=== PATIENT | female | born 1965 | race Caucasian/White ===

== ENCOUNTER → 2016-10-01 | Outpatient (CLI) | payer MEDICARE, MEDICAID ==
[~2016-10-01] MED LIST: /ESCI20TA OR; /LAMO15TA OR; /LAMO20TA PO; /QUET10TA OR; ABIL2TAB OR; ABILIFY; ALLE25CA; AMBI10TA PO; AMBI12.52 PO; AMBI5TAB; ATARAX; CELE20TA PO; CHLO200T OR; DEPA250T2 OR; EFFE75CA75 OR; EXCETAB OR; GEOD40CA OR; GEOD40CA2 PO; GEOD60CA OR; INVE234I IM; KLON0.5T; KLON1TAB OR; KLON1TAB PO; KLON2TAB OR; LAMO10TA PO; LAMO200T PO; LIPI20TA PO; LITH1TAB4 PO; MACR50CA; NICO21DI4 TD; PRIL40CA PO; PROZ10CA7 PO; QUET1TAB10 PO; QUET30XR OR; RISP1TAB OR; RISP3TAB18 PO; SAPHRIS SL; SERO1TAB2 PO; SERO400T OR; SERO400T PO; SEROQUEL; SEROQUEL OR; SYNT125T PO; TRAZ50TA OR; TRIL1TAB PO; VENL225T PO; VENL75TA3 PO; VIST50CA PO; ZIPR80CAP; cymbalta PO; lamictal PO
[2016-10-01 13:19] LABS: ALBUMIN 3.7 GM/DL (3.2-5.2); ALBUMIN/GLOBULIN RATIO 1.16 (1.00-1.93); ALKALINE PHOSPHATASE 146 U/L (45-117); ALT/SGPT 19 U/L (12-78); ANION GAP 9 MEQ/L (8-16); AST/SGOT 12 U/L (15-37); BILIRUBIN,TOTAL 0.2 MG/DL (0.2-1.0); BLOOD UREA NITROGEN 10 MG/DL (7-18); CALCIUM LEVEL 8.5 MG/DL (8.5-10.1); CARBON DIOXIDE LEVEL 26 MEQ/L (21-32); CHLORIDE LEVEL 105 MEQ/L (98-107); CHOLESTEROL LEVEL 322 MG/DL (<200); CREATININE FOR GFR 0.88 MG/DL (0.55-1.02); FREE T4 1.14 NG/DL (0.76-1.46); GLOMERULAR FILTRATION RATE > 60.0 (>51); GLUCOSE, FASTING 94 MG/DL (70-105); POTASSIUM SERUM 4.5 MEQ/L (3.5-5.1); SODIUM LEVEL 140 MEQ/L (136-145); TOTAL PROTEIN 6.9 GM/DL (6.4-8.2); TRIGLYCERIDES LEVEL 155 MG/DL (<150)
== END ==
LOC: M LAB 10:57
PROVIDERS: ATTEND Student in an Organized Health Care Education/Training Program
DX: E78.5 Hyperlipidemia, unspecified (principal); E03.9 Hypothyroidism, unspecified; F32.9 Major depressive disorder, single episode, unspecified

== ENCOUNTER → 2017-01-02 | Outpatient (REF) | payer MEDICARE, MEDICAID ==
[~2017-01-02] MED LIST changes: -RISP3TAB18 PO; +RISP3TAB20 PO
== END ==
LOC: M LAB REF 16:44
PROVIDERS: ATTEND Student in an Organized Health Care Education/Training Program
DX: Z12.4 Encounter for screening for malignant neoplasm of cervix (principal); N88.0 Leukoplakia of cervix uteri
CPT/HCPCS: G0123; G0463

== ENCOUNTER → 2018-12-14 | Outpatient (REF) | payer MEDICARE, MEDICAID ==
[~2018-12-14] MED LIST changes: -/ESCI20TA OR; -/LAMO15TA OR; -/LAMO20TA PO; -/QUET10TA OR; +GEOD40CA13 PO; -GEOD40CA2 PO; +LAMI1TAB8 OR; +LAMI1TAB9 PO; +LAMO100T80 PO; -LAMO10TA PO; -LAMO200T PO; +LAMO200T2 PO; +LEXA1TAB2 OR; -QUET30XR OR; +SERO1TAB OR; +SERO300T20 OR; +VENL-65 PO; -VENL225T PO; +VENL225T5 PO; -VENL75TA3 PO
[2018-12-14 13:34] LABS: BASO # 0.1 10^3/uL (0.0-0.2); BASO % 0.9 % (0.0-1.0); EOS # 0.4 10^3/uL (0.0-0.50); EOS % 5.5 % (0.0-3.0); HEMATOCRIT 44.3 % (36.0-47.0); HEMOGLOBIN 14.8 g/dl (12.0-15.5); LYMPH # 2.1 10^3/uL (1.5-4.5); LYMPH % 30.6 % (24.0-44.0); MEAN CORPUSCULAR HEMOGLOBIN 29.4 pg (27.0-33.0); MEAN CORPUSCULAR HGB CONC 33.4 g/dl (32.0-36.5); MEAN CORPUSCULAR VOLUME 87.9 fl (80.0-96.0); MONO # 0.7 10^3/uL (0.0-0.8); MONO % 10.3 % (0.0-5.0); NEUTROPHILS # 3.5 10^3/uL (1.8-7.7); NEUTROPHILS % 52.3 % (36.0-66.0); PLATELET COUNT, AUTOMATED 290 10^3/uL (150-450); RED BLOOD COUNT 5.04 10^6/uL (4.00-5.40); WHITE BLOOD COUNT 6.7 10^3/uL (4.0-10.0)
[2018-12-14 13:53] LABS: ALBUMIN 3.9 GM/DL (3.2-5.2); ALT/SGPT 23 U/L (12-78); BILIRUBIN,TOTAL 0.3 MG/DL (0.2-1.0); BLOOD UREA NITROGEN 8 MG/DL (7-18); CALCIUM LEVEL 8.6 MG/DL (8.5-10.1); CARBON DIOXIDE LEVEL 26 MEQ/L (21-32); CHLORIDE LEVEL 106 MEQ/L (98-107); CHOLESTEROL LEVEL 151 MG/DL (<200); CHOLESTEROL RISK RATIO 3.355 (<5); CREATININE FOR GFR 0.74 MG/DL (0.55-1.30); FREE T4 1.02 NG/DL (0.76-1.46); GLOMERULAR FILTRATION RATE > 60.0 (>51); GLUCOSE, FASTING 101 MG/DL (70-100); HDL CHOLESTEROL 45 MG/DL (>40); LDL CHOLESTEROL 88 MG/DL (<100); NON-HDL-C 106 MG/DL; POTASSIUM SERUM 4.5 MEQ/L (3.5-5.1); SODIUM LEVEL 139 MEQ/L (136-145); THYROID STIMULATING HORMONE 0.872 uIU/ML (0.358-3.740); TOTAL 25(OH) VITAMIN D 18.9 NG/ML (30.0-100.0); TOTAL PROTEIN 7.2 GM/DL (6.4-8.2); TRIGLYCERIDES LEVEL 88 MG/DL (<150)
[2018-12-14 13:55] LABS: HEMOGLOBIN A1c 5.8 %
[2018-12-14 14:08] LABS: APPEARANCE, URINE CLOUDY (CLEAR); BACTERIA, URINE AUTO NEGATIVE (NEGATIVE); BILIRUBIN, URINE AUTO NEGATIVE (NEGATIVE); BLOOD, URINE BLOOD 2+ (NEGATIVE); COLOR, URINE YELLOW (YELLOW); GLUCOSE, URINE (UA) AUTO NEGATIVE (NEGATIVE); KETONE, URINE AUTO NEGATIVE (NEGATIVE); LEUKOCYTE ESTERASE, URINE AUTO TRACE (NEGATIVE); NITRITE, URINE AUTO NEGATIVE (NEGATIVE); PROTEIN, URINE AUTO NEGATIVE (NEGATIVE); RBC, URINE AUTO 3 /HPF (0-3); SPECIFIC GRAVITY URINE AUTO 1.013 (1.002-1.035); SQUAMOUS EPITHELIAL CELL UR AU 8 /HPF (0-6); UROBILINOGEN, URINE AUTO 0.2 mg/dL (0.0-2.0); WBC, URINE AUTO 0 /HPF (0-3)
[2018-12-16 00:06] LABS: Lyme Disease IgG/IgM Antibodie <0.91 ISR (0.00-0.90); Lyme Disease IgM Ab Quantitati <0.80 index (0.00-0.79)
== END ==
LOC: M LAB REF 12:52
PROVIDERS: ATTEND Family Medicine
DX: Z13.228 Encounter for screening for other metabolic disorders (principal); Z79.899 Other long term (current) drug therapy

== ENCOUNTER → 2019-03-17 | Outpatient (REF) | payer MEDICARE, MEDICAID ==
[2019-03-17 17:10] LABS: ALT/SGPT 23 U/L (12-78); BILIRUBIN,TOTAL 0.3 MG/DL (0.2-1.0); BLOOD UREA NITROGEN 8 MG/DL (7-18); CALCIUM LEVEL 9.1 MG/DL (8.5-10.1); CARBON DIOXIDE LEVEL 28 MEQ/L (21-32); CHLORIDE LEVEL 101 MEQ/L (98-107); CHOLESTEROL LEVEL 134 MG/DL (<200); CREATININE FOR GFR 0.88 MG/DL (0.55-1.30); FREE T4 1.05 NG/DL (0.76-1.46); GLOMERULAR FILTRATION RATE > 60.0 (>51); GLUCOSE, FASTING 101 MG/DL (70-100); HDL CHOLESTEROL 42 MG/DL (>40); LDL CHOLESTEROL 60 MG/DL (<100); NON-HDL-C 92 MG/DL; POTASSIUM SERUM 4.4 MEQ/L (3.5-5.1); SODIUM LEVEL 136 MEQ/L (136-145); TOTAL PROTEIN 7.2 GM/DL (6.4-8.2); TRIGLYCERIDES LEVEL 158 MG/DL (<150)
[2019-03-17 17:43] LABS: HEMOGLOBIN A1c 5.8 %
== END ==
LOC: M LAB REF 16:28
PROVIDERS: ATTEND Family Medicine
DX: R73.03 Prediabetes (principal); E03.1 Congenital hypothyroidism without goiter; E78.5 Hyperlipidemia, unspecified

== ENCOUNTER → 2019-07-27 | Outpatient (REF) | payer MEDICARE, MEDICAID ==
[~2019-07-27] MED LIST changes: -LAMO200T2 PO; +LAMO200T3 PO
[2019-07-27 18:19] LABS: HEMOGLOBIN A1c 5.9 %
[2019-07-27 18:20] LABS: ALBUMIN 3.9 GM/DL (3.2-5.2); ALT/SGPT 24 U/L (12-78); BILIRUBIN,TOTAL 0.3 MG/DL (0.2-1.0); BLOOD UREA NITROGEN 8 MG/DL (7-18); CALCIUM LEVEL 8.8 MG/DL (8.5-10.1); CARBON DIOXIDE LEVEL 29 MEQ/L (21-32); CHLORIDE LEVEL 99 MEQ/L (98-107); CHOLESTEROL LEVEL 142 MG/DL (<200); CREATININE FOR GFR 0.85 MG/DL (0.55-1.30); FREE T4 1.23 NG/DL (0.76-1.46); GLOMERULAR FILTRATION RATE > 60.0 (>51); GLUCOSE, FASTING 90 MG/DL (70-100); HDL CHOLESTEROL 40 MG/DL (>40); LDL CHOLESTEROL 73 MG/DL (<100); NON-HDL-C 102 MG/DL; POTASSIUM SERUM 5.2 MEQ/L (3.5-5.1); SODIUM LEVEL 134 MEQ/L (136-145); TOTAL PROTEIN 7.1 GM/DL (6.4-8.2); TRIGLYCERIDES LEVEL 147 MG/DL (<150)
== END ==
LOC: M LAB REF 16:59
PROVIDERS: ATTEND Family Medicine
DX: E55.9 Vitamin D deficiency, unspecified (principal); R73.03 Prediabetes; E03.1 Congenital hypothyroidism without goiter; E78.5 Hyperlipidemia, unspecified; K21.9 Gastro-esophageal reflux disease without esophagitis

== ENCOUNTER → 2020-07-11 | Outpatient (REF) | payer MEDICARE, MEDICAID ==
[~2020-07-11] MED LIST changes: -QUET1TAB10 PO; +QUET300T2 PO
[2020-07-11 17:57] LABS: ALBUMIN 3.7 GM/DL (3.2-5.2); ALT/SGPT 22 U/L (12-78); BILIRUBIN,TOTAL 0.2 MG/DL (0.2-1.0); BLOOD UREA NITROGEN 5 MG/DL (7-18); CALCIUM LEVEL 9.3 MG/DL (8.5-10.1); CARBON DIOXIDE LEVEL 29 MEQ/L (21-32); CHLORIDE LEVEL 95 MEQ/L (98-107); CHOLESTEROL LEVEL 121 MG/DL (<200); CHOLESTEROL RISK RATIO 3.457 (<5); CREATININE FOR GFR 0.78 MG/DL (0.55-1.30); GLOMERULAR FILTRATION RATE > 60.0 (>51); GLUCOSE, FASTING 95 MG/DL (70-100); HDL CHOLESTEROL 35 MG/DL (>40); LDL CHOLESTEROL 58 MG/DL (<100); NON-HDL-C 86 MG/DL; POTASSIUM SERUM 4.1 MEQ/L (3.5-5.1); SODIUM LEVEL 132 MEQ/L (136-145); TOTAL PROTEIN 6.8 GM/DL (6.4-8.2); TRIGLYCERIDES LEVEL 142 MG/DL (<150)
== END ==
LOC: M LAB REF 16:42
PROVIDERS: ATTEND Family Medicine Addiction Medicine
DX: R73.03 Prediabetes (principal); E78.5 Hyperlipidemia, unspecified; E03.1 Congenital hypothyroidism without goiter

== ENCOUNTER → 2020-11-02 | Outpatient (CLI) | payer MEDICARE, MEDICAID ==
--- NOTE | 2020-11-02 16:27 | REPMRS ---
Patient History The patient states she has not had a clinical breast exam in over a year. Family history of endometrial cancer in paternal grandmother. Tomosynthesis is performed. Volpara breast density is b. Tyrer-Cuzick lifetime risk of breast cancer 7.0%. No breast complaints today Patient signed the MRS sheet No covid vaccine Priors on PACS Patient Identification Verified Patient's left nipple is inverted and has been for years Digital Woman Screen Mammo: November 02, 2020 - Exam #: [id number] Bilateral CC and MLO view(s) were taken. Technologist: Sharon Aranda, Technologist Prior study comparison: April 13, 2017, digital woman screen mammo performed at [facility]. August 22, 2014, bilateral digital mammo screening bilat, performed at [facility]. FINDINGS: There are scattered fibroglandular densities. There has been no change in the appearance of the mammogram from the prior studies. There is a mild amount of residual fibroglandular tissue which is fairly symmetric. There is no interval development of dominant mass, architectural distortion, or clustered microcalcification suggestive of malignancy. Assessment: BI-RADS/ACR category 1 mammogram. Negative Mammogram. Recommendation Routine screening mammogram in 1 year (for women over age 40). This mammogram was interpreted with the aid of an FDA-approved computer-aided dectection system. Electronically Signed By: Anil Peñaloza MD 11/02/20 2408
== END ==
LOC: M WHC 14:19
PROVIDERS: ATTEND Family Medicine Addiction Medicine
DX: Z12.31 Encounter for screening mammogram for malignant neoplasm of breast (principal)

== ENCOUNTER → 2022-05-14 | Outpatient (REF) | payer OTHER, MEDICARE, MEDICAID ==
[2022-05-14 18:31] LABS: ALBUMIN 3.7 G/DL (3.2-5.2); ALKALINE PHOSPHATASE 118 U/L (46-116); ALT/SGPT 25 U/L (7.0-40); AST/SGOT 21 U/L (<34); BILIRUBIN,TOTAL 0.3 MG/DL (0.3-1.2); BLOOD UREA NITROGEN < 5 MG/DL (9-23); CALCIUM LEVEL 9.3 MG/DL (8.5-10.1); CARBON DIOXIDE LEVEL 30 MMOL/L (20-31); CHLORIDE LEVEL 98 MMOL/L (98-107); CHOLESTEROL LEVEL 111 MG/DL (<200); CHOLESTEROL RISK RATIO 3.45 (<5); CREATININE FOR GFR 0.59 MG/DL (0.55-1.30); GLOMERULAR FILTRATION RATE > 60.0 (>51); GLUCOSE, FASTING 111 MG/DL (60-100); HDL CHOLESTEROL 32.1 MG/DL (>40); LDL CHOLESTEROL 62.3 MG/DL (<100); NON-HDL-C 79 MG/DL; POTASSIUM SERUM 3.7 MMOL/L (3.5-5.1); SODIUM LEVEL 136 MMOL/L (136-145); THYROID STIMULATING HORMONE 1.846 uIU/ML (0.55-4.78); TRIGLYCERIDES LEVEL 83 MG/DL (<150)
== END ==
LOC: M LAB REF 16:26
PROVIDERS: ATTEND Family Medicine Addiction Medicine
DX: E78.5 Hyperlipidemia, unspecified (principal)

== ENCOUNTER → 2022-11-14 | Outpatient (REF) | payer MEDICARE, MEDICAID ==
[2022-11-14 13:22] LABS: ALBUMIN 4.2 G/DL (3.2-5.2); ALKALINE PHOSPHATASE 109 U/L (46-116); ALT/SGPT 21 U/L (7.0-40); AST/SGOT 14 U/L (<34); BILIRUBIN,TOTAL 0.5 MG/DL (0.3-1.2); BLOOD UREA NITROGEN 6 MG/DL (9-23); CALCIUM LEVEL 8.9 MG/DL (8.5-10.1); CARBON DIOXIDE LEVEL 27 MMOL/L (20-31); CHLORIDE LEVEL 95 MMOL/L (98-107); CHOLESTEROL LEVEL 108 MG/DL (<200); CHOLESTEROL RISK RATIO 2.63 (<5); CREATININE FOR GFR 0.65 MG/DL (0.55-1.30); GLOMERULAR FILTRATION RATE > 60.0 (>51); GLUCOSE, FASTING 109 MG/DL (60-100); LDL CHOLESTEROL 48.8 MG/DL (<100); POTASSIUM SERUM 4.1 MMOL/L (3.5-5.1); SODIUM LEVEL 131 MMOL/L (136-145); TOTAL PROTEIN 6.8 G/DL (5.7-8.2); TRIGLYCERIDES LEVEL 91 MG/DL (<150)
== END ==
LOC: M LAB REF 12:20
PROVIDERS: ATTEND Family Medicine Addiction Medicine
DX: E78.5 Hyperlipidemia, unspecified (principal)

== ENCOUNTER 2023-04-29 07:58 | Day surgery (SDC) | payer MEDICARE, MEDICAID ==
[~2023-04-29] VITALS: Ht 157.5 cm; Wt 88.5 kg
[~2023-04-29 07:58] MED LIST changes: +ATOR80TA59 PO; +BUSP30TA PO; +NS 1,000 ML IV ONE; +OMEP40CA4 PO; +PROZ20CA11 PO; +TRAZ-252 PO; +VITA100093 PO
[2023-04-29] MEDS ORDERED: propofoL 200 MG/20 ML VIAL As Ordered ONE ×2 (09:53→10:00)
[2023-04-29] MEDS ORDERED: LIDOCAINE 2% 100MG/5ML SDV (FOR ANES.) As Ordered ONE (10:00)
[2023-04-29] MEDS ORDERED: GLYCOPYRROLATE INJ 0.2 MG/ML 2 ML VIAL As Ordered ONE (10:00)
[2023-04-29 10:28] VITALS: TEMP 97.7
[2023-04-29 10:45] VITALS: BP 160/80; O2SAT 98
== END 2023-04-29 11:08 | disposition home or self-care (01) ==
LOC: M OPP 07:58
PROVIDERS: ATTEND Surgery
DX: K63.5 Polyp of colon (principal); E78.5 Hyperlipidemia, unspecified; E03.9 Hypothyroidism, unspecified; M19.90 Unspecified osteoarthritis, unspecified site; F41.9 Anxiety disorder, unspecified; F32.A Depression, unspecified; F20.9 Schizophrenia, unspecified; J44.9 Chronic obstructive pulmonary disease, unspecified; F17.210 Nicotine dependence, cigarettes, uncomplicated; Z88.0 Allergy status to penicillin; Z91.030 Bee allergy status; Z79.890 Hormone replacement therapy; Z79.899 Other long term (current) drug therapy

== ENCOUNTER → 2023-07-22 | Outpatient (REF) | payer MEDICARE, MEDICAID ==
[~2023-07-22] MED LIST changes: -NS 1,000 ML IV ONE
[2023-07-22 11:58] LABS: HEMOGLOBIN A1c 5.2 % (4.0-6.0)
[2023-07-22 12:09] LABS: THYROID STIMULATING HORMONE 2.001 uIU/ML (0.55-4.78)
[2023-07-22 12:13] LABS: ALBUMIN 3.8 G/DL (3.2-5.2); ALKALINE PHOSPHATASE 80 U/L (46-116); ALT/SGPT 19 U/L (7.0-40); AST/SGOT 19 U/L (<34); BILIRUBIN,TOTAL 0.3 MG/DL (0.3-1.2); BLOOD UREA NITROGEN < 5 MG/DL (9-23); CALCIUM LEVEL 8.8 MG/DL (8.5-10.1); CARBON DIOXIDE LEVEL 28 MMOL/L (20-31); CHLORIDE LEVEL 92 MMOL/L (98-107); CHOLESTEROL LEVEL 100 MG/DL (<200); CHOLESTEROL RISK RATIO 2.01 (<5); GLOMERULAR FILTRATION RATE > 60.0 (>51); GLUCOSE, FASTING 110 MG/DL (60-100); HDL CHOLESTEROL 49.6 MG/DL (>40); LDL CHOLESTEROL 38.6 MG/DL (<100); NON-HDL-C 50.4 MG/DL; POTASSIUM SERUM 4.1 MMOL/L (3.5-5.1); SODIUM LEVEL 125 MMOL/L (136-145); TOTAL PROTEIN 6.4 G/DL (5.7-8.2); TRIGLYCERIDES LEVEL 59 MG/DL (<150)
== END ==
LOC: M LAB REF 11:09
PROVIDERS: ATTEND Family Medicine Addiction Medicine
DX: R73.9 Hyperglycemia, unspecified (principal); E78.5 Hyperlipidemia, unspecified

== ENCOUNTER → 2023-08-17 | Outpatient (REF) | payer MEDICARE, MEDICAID ==
[2023-08-17 13:45] LABS: BLOOD UREA NITROGEN < 5 MG/DL (9-23); CALCIUM LEVEL 8.5 MG/DL (8.5-10.1); CARBON DIOXIDE LEVEL 28 MMOL/L (20-31); CHLORIDE LEVEL 98 MMOL/L (98-107); CREATININE FOR GFR 0.54 MG/DL (0.55-1.30); GLOMERULAR FILTRATION RATE > 60.0 (>51); GLUCOSE, FASTING 97 MG/DL (60-100); POTASSIUM SERUM 4.4 MMOL/L (3.5-5.1); SODIUM LEVEL 130 MMOL/L (136-145)
== END ==
LOC: M LAB REF 12:34
PROVIDERS: ATTEND Family Medicine Addiction Medicine
DX: E87.1 Hypo-osmolality and hyponatremia (principal)

== ENCOUNTER → 2024-04-18 | Outpatient (REF) | payer MEDICARE, MEDICAID ==
[~2024-04-18] MED LIST changes: -KLON1TAB PO; +KLON1TAB13 PO
[2024-04-18 14:19] LABS: ALKALINE PHOSPHATASE 140 U/L (35-104); ALT/SGPT 15 U/L (7.0-40); AST/SGOT 15 U/L (<34); BILIRUBIN,TOTAL 0.3 MG/DL (0.3-1.2); BLOOD UREA NITROGEN < 5 MG/DL (9-23); CALCIUM LEVEL 9.3 MG/DL (8.5-10.1); CARBON DIOXIDE LEVEL 31 MMOL/L (20-31); CHLORIDE LEVEL 94 MMOL/L (98-107); CHOLESTEROL LEVEL 111 MG/DL (<200); CHOLESTEROL RISK RATIO 3.62 (<5); CREATININE FOR GFR 0.51 MG/DL (0.55-1.30); GLOMERULAR FILTRATION RATE > 60.0 (>51); GLUCOSE, FASTING 102 MG/DL (60-100); HDL CHOLESTEROL 30.6 MG/DL (>40); LDL CHOLESTEROL 59.6 MG/DL (<100); NON-HDL-C 80.4 MG/DL; POTASSIUM SERUM 3.2 MMOL/L (3.5-5.1); SODIUM LEVEL 132 MMOL/L (136-145); THYROID STIMULATING HORMONE 0.727 uIU/ML (0.55-4.78); TOTAL PROTEIN 6.6 G/DL (5.7-8.2); TRIGLYCERIDES LEVEL 104 MG/DL (<150)
== END ==
LOC: M LAB REF 13:02
PROVIDERS: ATTEND Family Medicine Addiction Medicine
DX: E78.5 Hyperlipidemia, unspecified (principal)

== ENCOUNTER → 2024-04-25 | Outpatient (REF) | payer MEDICARE, MEDICAID ==
[~2024-04-25] MED LIST changes: -GEOD40CA13 PO; +ZIPR40CA27 PO
[2024-04-25 14:12] LABS: BLOOD UREA NITROGEN < 5 MG/DL (9-23); CALCIUM LEVEL 8.8 MG/DL (8.5-10.1); CARBON DIOXIDE LEVEL 35 MMOL/L (20-31); CHLORIDE LEVEL 98 MMOL/L (98-107); CREATININE FOR GFR 0.52 MG/DL (0.55-1.30); GLOMERULAR FILTRATION RATE > 60.0 (>51); GLUCOSE, FASTING 104 MG/DL (60-100); POTASSIUM SERUM 3.6 MMOL/L (3.5-5.1); SODIUM LEVEL 135 MMOL/L (136-145)
== END ==
LOC: M LAB REF 13:34
PROVIDERS: ATTEND Family Medicine Addiction Medicine
DX: E87.6 Hypokalemia (principal)

== ENCOUNTER → 2024-10-13 | Outpatient (REF) | payer MEDICARE, MEDICAID ==
[~2024-10-13] MED LIST changes: -AMBI10TA PO; -AMBI12.52 PO; +ZOLP-533 PO; +ZOLP12.561 PO
[2024-10-13 19:45] LABS: ALKALINE PHOSPHATASE 134 U/L (35-104); ALT/SGPT 16 U/L (7.0-40); AST/SGOT 26 U/L (<34); BILIRUBIN,TOTAL 0.3 MG/DL (0.3-1.2); BLOOD UREA NITROGEN < 5 MG/DL (9-23); CALCIUM LEVEL 8.8 MG/DL (8.3-10.6); CARBON DIOXIDE LEVEL 32 MMOL/L (20-31); CHLORIDE LEVEL 95 MMOL/L (98-107); CHOLESTEROL LEVEL 110 MG/DL (<200); CHOLESTEROL RISK RATIO 3.23 (<5); GLOMERULAR FILTRATION RATE > 90.0 (>45); GLUCOSE, FASTING 96 MG/DL (74-106); LDL CHOLESTEROL 56.4 MG/DL (<100); POTASSIUM SERUM 3.1 MMOL/L (3.5-5.1); SODIUM LEVEL 133 MMOL/L (136-145); THYROID STIMULATING HORMONE 0.162 uIU/ML (0.55-4.78); TOTAL PROTEIN 6.3 G/DL (5.7-8.2); TRIGLYCERIDES LEVEL 98 MG/DL (<150)
== END ==
LOC: M LAB REF 17:46
PROVIDERS: ATTEND Family Medicine Addiction Medicine
DX: E78.5 Hyperlipidemia, unspecified (principal)

== ENCOUNTER → 2024-11-02 | Outpatient (REF) | payer MEDICARE, MEDICAID ==
[2024-11-02 18:42] LABS: THYROID STIMULATING HORMONE 0.224 uIU/ML (0.55-4.78)
[2024-11-02 18:55] LABS: BLOOD UREA NITROGEN < 5 MG/DL (9-23); CALCIUM LEVEL 8.7 MG/DL (8.3-10.6); CARBON DIOXIDE LEVEL 28 MMOL/L (20-31); CHLORIDE LEVEL 99 MMOL/L (98-107); CREATININE FOR GFR 0.49 MG/DL (0.55-1.30); GLOMERULAR FILTRATION RATE > 90.0 (>45); GLUCOSE, FASTING 83 MG/DL (74-106); POTASSIUM SERUM 3.9 MMOL/L (3.5-5.1); SODIUM LEVEL 132 MMOL/L (136-145)
== END ==
LOC: M LAB REF 17:18
PROVIDERS: ATTEND Family Medicine Addiction Medicine
DX: E87.6 Hypokalemia (principal); E03.1 Congenital hypothyroidism without goiter

== ENCOUNTER 2024-12-20 08:23 | Inpatient (IN) | payer MEDICARE, MEDICAID ==
[~2024-12-20] VITALS: Ht 157.5 cm; Wt 67.1 kg
[2024-12-20] VITALS (11 sets, daily range): BP systolic 87–124; BP diastolic 57–85; TEMP 98.9; O2SAT 98–100
[2024-12-20] MEDS ORDERED: HALO0.5H PO (08:41)
[2024-12-20] MEDS ORDERED: CLON0.5T2 PO (08:41)
[2024-12-20 09:14] LABS: BASO # 0.1 10^3/uL (0.0-0.2); BASO % 0.4 % (0.0-1.0); EOS # 0.3 10^3/uL (0.0-0.5); EOS % 1.9 % (0.0-3.0); LYMPH # 2.4 10^3/uL (1.5-5.0); LYMPH % 17.4 % (24.0-44.0); MONO # 1.4 10^3/uL (0.0-0.8); MONO % 9.9 % (2.0-8.0); NEUTROPHILS # 9.8 10^3/uL (1.5-8.5); NEUTROPHILS % 69.8 % (36.0-66.0); PLATELET COUNT, AUTOMATED 344 10^3/uL (150-450)
[2024-12-20] MEDS: KETOROLAC 30 MG/ML 1 ML VIAL IV ONE (09:29)
[2024-12-20] MEDS: IPRATROPIUM 0.5 MG/ALBUTEROL 2.5 MG INH SOL UD 3 ML NEB SCH ×2 (09:51→21:28)
[2024-12-20] MEDS: LevoFLOXacin IV 750 MG in IV 1 EA IV ONE (09:54)
[2024-12-20] MEDS ORDERED: TRAZ-189 PO (09:59)
[2024-12-20] MEDS ORDERED: INVE1.75 IM (09:59)
[2024-12-20] MEDS ORDERED: HOME MED LIST COMPLETE! XX SCH (10:00)
[2024-12-20 10:11] LABS: ALT/SGPT 9 U/L (7.0-40); AST/SGOT 19 U/L (<34); CALCIUM LEVEL 8.8 MG/DL (8.3-10.6); CARBON DIOXIDE LEVEL 35 MMOL/L (20-31); CHLORIDE LEVEL 93 MMOL/L (98-107); CREATININE FOR GFR 0.48 MG/DL (0.55-1.30); GLOMERULAR FILTRATION RATE > 90.0 (>45); POTASSIUM SERUM 2.5 MMOL/L (3.5-5.1); SODIUM LEVEL 136 MMOL/L (136-145); THYROXINE (T4) 12.6 UG/DL (4.5-10.9)
[2024-12-20 11:00] LABS: CPK CREATINE PHOSPHOKINASE 23 U/L (34-145)
[2024-12-20 11:04] LABS: CK-MB VALUE MASS < 1.0 NG/ML (<3.6)
[2024-12-20 11:12] LABS: CPK CREATINE PHOSPHOKINASE 23 U/L (34-145)
[2024-12-20 11:13] LABS: CK-MB VALUE MASS < 1.0 NG/ML (<3.6)
[2024-12-20] MEDS: POTASSIUM CHLORIDE 10MEQ SR TABLET PO ONE ×3 (11:24→18:46)
[2024-12-20] MEDS: NS (Normal Saline) 0.9% 1,990 ML in IV 1 EA IV ONE (11:26)
[2024-12-20] MEDS: KCL 10MEQ/100ML SWI (KRUN) 10 MEQ in IV 1 EA IV ONE (11:27)
[2024-12-20 13:51] LABS: MAGNESIUM LEVEL 1.8 MG/DL (1.8-2.4)
[2024-12-20 15:07] LABS: CALCIUM LEVEL 8.1 MG/DL (8.3-10.6); CARBON DIOXIDE LEVEL 28 MMOL/L (20-31); CHLORIDE LEVEL 99 MMOL/L (98-107); CREATININE FOR GFR 0.49 MG/DL (0.55-1.30); GLOMERULAR FILTRATION RATE > 90.0 (>45); POTASSIUM SERUM 2.7 MMOL/L (3.5-5.1); SODIUM LEVEL 139 MMOL/L (136-145)
[2024-12-20] MEDS: MAG SULF 1GM/100ML (MAG RUN) 1 GM in IV 1 EA IV ONE ×2 (16:31→22:13)
[2024-12-20] MEDS ORDERED: ISOVUE-370 76% 100 ML VIAL As Ordered ONE (17:01)
[2024-12-20] MEDS ORDERED: guaiFENesin SYRUP 200 MG/10 ML UDC PO PRN (17:10)
[2024-12-20] MEDS: EPINEPHrine 1 MG/10 ML SYRINGE 1.5IN IV STA (17:15)
[2024-12-20] MEDS ORDERED: HALOPERIDOL 0.5 MG TAB PO PRN (17:15)
[2024-12-20] MEDS ORDERED: clonazePAM 0.5 MG TAB PO PRN (17:15)
[2024-12-20] MEDS: AMIODARONE 150 MG/3 ML VIAL IVP STA (17:19)
[2024-12-20] MEDS ORDERED: PROPOFOL 1,000 MG/100 ML VIAL As Ordered ONE (17:30)
[2024-12-20] MEDS ORDERED: MIDAZOLAM 5 MG/ML 1 ML VIAL As Ordered ONE (17:32)
[2024-12-20] MEDS: MIDAZOLAM INJ 2 MG/2 ML VIAL IV ONE (17:35)
[2024-12-20] MEDS: MIDAZOLAM INJ 2 MG/2 ML VIAL IV STA (17:35)
[2024-12-20] MEDS ORDERED: FENTANYL DRIP LOCK BOX KEY 1 EACH XX PRN (17:35)
[2024-12-20] MEDS ORDERED: MIDAZOLAM 100MG/100ML-0.9%NACL 100 MG in IV 1 EA IV SCH ×2 (17:35→18:45)
[2024-12-20] MEDS: KCL 10MEQ/100ML SWI (KRUN) 10 MEQ in IV 1 EA IV SCH (17:51)
[2024-12-20] MEDS: MIDAZOLAM 100MG/100ML-0.9%NACL 100 MG in IV 1 EA IV SCH (17:58)
[2024-12-20] MEDS: NS (Normal Saline) 0.9% 1,000 ML IV SCH (17:59)
[2024-12-20 18:19] LABS: ABG BASE EXCESS -2.0 (-2.0-2.0); ABG HCO3 22.5 MMOL/L (22.0-26.0); ABG O2 SATURATION 99.0 % (95.0-99.0); ABG PARTIAL PRESSURE CO2 37.7 mmHg (35.0-45.0); ABG PARTIAL PRESSURE O2 229.3 mmHg (75.0-100.0); ABG STANDARD HCO3 22.9 MMOL/L. (22.0-26.0); ABG TOTAL CO2 23.6 MMOL/L (23.0-31.0); ABG pH (ARTERIAL) 7.393 UNITS (7.350-7.450)
[2024-12-20] MEDS: fentaNYL CITRATE/NaCl 1,000 MCG in IV 1 EA IV SCH (18:40)
[2024-12-20] MEDS: NS (Normal Saline) 0.9% 1,000 ML IV ONE (18:55)
[2024-12-20] MEDS ORDERED: AMIODARONE HCL 150 MG in IV 1 EA IV SCH (19:00)
[2024-12-20] MEDS: ACETAMINOPHEN *IV* 1,000 MG in IV 1 EA IV ONE (19:26)
[2024-12-20] MEDS ORDERED: KCL 40MEQ in NS 1000ML 1,000 ML IV ONE (20:00)
[2024-12-20] MEDS ORDERED: traZODone 100 MG TAB PO SCH (21:00)
[2024-12-20] MEDS: ENOXAPARIN 80 MG/0.8 ML SYRINGE (J1650 PER 10MG) SC SCH (22:12)
[2024-12-20] MEDS: ATORVASTATIN 20 MG TAB PO SCH (22:12)
[2024-12-20] MEDS: MEROPENEM IV SCH (22:30)
[2024-12-20] MEDS: NACL IV SCH (22:30)
[2024-12-20] MEDS: KCL 20MEQ in NS 1000ML 1,000 ML IV SCH (23:01)
[2024-12-20 23:48] LABS: CK-MB VALUE MASS 7.1 NG/ML (<3.6)
[2024-12-20] MEDS: VANCOMYCIN HCL 1,500 MG, VIAL MATE ADAPTER 1 EACH in NS 500 ML IV ONE (23:53)
[2024-12-21] VITALS (47 sets, daily range): BP systolic 85–153; BP diastolic 52–88; TEMP 97.1–98.6; O2SAT 93–100
[2024-12-21 00:27] LABS: BASO # 0.0 10^3/uL (0.0-0.2); BASO % 0.2 % (0.0-1.0); EOS # 0.1 10^3/uL (0.0-0.5); EOS % 0.5 % (0.0-3.0); LYMPH # 0.6 10^3/uL (1.5-5.0); LYMPH % 2.7 % (24.0-44.0); MONO # 1.1 10^3/uL (0.0-0.8); MONO % 4.5 % (2.0-8.0); NEUTROPHILS # 21.7 10^3/uL (1.5-8.5); NEUTROPHILS % 91.0 % (36.0-66.0); PLATELET COUNT, AUTOMATED 311 10^3/uL (150-450)
[2024-12-21 00:35] LABS: ALT/SGPT 22 U/L (7.0-40); AST/SGOT 56 U/L (<34); CALCIUM LEVEL 8.4 MG/DL (8.3-10.6); CARBON DIOXIDE LEVEL 26 MMOL/L (20-31); CHLORIDE LEVEL 100 MMOL/L (98-107); CPK CREATINE PHOSPHOKINASE 328 U/L (34-145); CREATININE FOR GFR 0.42 MG/DL (0.55-1.30); GLOMERULAR FILTRATION RATE > 90.0 (>45); MB/CK RELATIVE INDEX 2.16 (< OR =4); POTASSIUM SERUM 3.3 MMOL/L (3.5-5.1); SODIUM LEVEL 138 MMOL/L (136-145)
[2024-12-21] MEDS ORDERED: FENTANYL DRIP LOCK BOX KEY 1 EACH XX PRN ×2 (01:00→02:10)
[2024-12-21] MEDS ORDERED: fentaNYL CITRATE/NaCl 1,000 MCG in IV 1 EA IV SCH (02:10)
[2024-12-21 06:05] LABS: ABG BASE EXCESS 2.8 (-2.0-2.0); ABG HCO3 26.6 MMOL/L (22.0-26.0); ABG O2 SATURATION 97.9 % (95.0-99.0); ABG PARTIAL PRESSURE CO2 38.4 mmHg (35.0-45.0); ABG PARTIAL PRESSURE O2 114.1 mmHg (75.0-100.0); ABG STANDARD HCO3 27.0 MMOL/L. (22.0-26.0); ABG TOTAL CO2 27.8 MMOL/L (23.0-31.0); ABG pH (ARTERIAL) 7.459 UNITS (7.350-7.450)
[2024-12-21] MEDS: LEVOTHYROXINE 100 MCG TABLET (0.1 MG) PO SCH (06:13)
[2024-12-21 06:32] LABS: PLATELET COUNT, AUTOMATED 298 10^3/uL (150-450)
[2024-12-21 07:04] LABS: INR 1.08
[2024-12-21 07:07] LABS: ALT/SGPT 18 U/L (7.0-40); AST/SGOT 44 U/L (<34); CALCIUM LEVEL 8.1 MG/DL (8.3-10.6); CARBON DIOXIDE LEVEL 27 MMOL/L (20-31); CHLORIDE LEVEL 105 MMOL/L (98-107); CREATININE FOR GFR 0.35 MG/DL (0.55-1.30); GLOMERULAR FILTRATION RATE > 90.0 (>45); MAGNESIUM LEVEL 2.1 MG/DL (1.8-2.4); POTASSIUM SERUM 3.6 MMOL/L (3.5-5.1); SODIUM LEVEL 142 MMOL/L (136-145)
[2024-12-21] MEDS ORDERED: VANCOMYCIN HCL 1,000 MG, VIAL MATE ADAPTER 1 EACH in NS 250 ML IV SCH (08:00)
[2024-12-21] MEDS: PANTOPRAZOLE 40MG VIAL IV SCH (08:06)
[2024-12-21] MEDS: LIDOCAINE 5% PATCH TD SCH (08:06)
[2024-12-21 08:12] LABS: VANCOMYCIN RANDOM 13.3 UG/ML
[2024-12-21] MEDS: VANCOMYCIN HCL 1,000 MG, VIAL MATE ADAPTER 1 EACH in NS 250 ML IV SCH (08:47)
[2024-12-21] MEDS ORDERED: FLUoxetine 20 MG CAP PO SCH (09:00)
[2024-12-21] MEDS ORDERED: OMEPRAZOLE 20MG CAP PO SCH (09:00)
[2024-12-21] MEDS ORDERED: ENOXAPARIN 40 MG/0.4 ML SYRINGE (J1650 PER 10MG) SC SCH (09:00)
[2024-12-21] MEDS: NICOTINE 7 MG/24 HR TRANSDERMAL TD SCH (10:22)
[2024-12-21] MEDS: KCL 10MEQ/100ML SWI (KRUN) IV SCH (10:31)
[2024-12-21] MEDS: AZITHROMYCIN INJ 500 MG, VIAL MATE ADAPTER 1 EACH in NS 250 ML IV SCH (11:37)
[2024-12-21] MEDS: cefTRIAXone SOD 2 GM in DEXTROSE 5% (D5W) ADV/MINI-BAG 50 ML IV SCH (18:10)
[2024-12-22] VITALS (35 sets, daily range): BP systolic 92–144; BP diastolic 55–78; TEMP 97.1–98.3; O2SAT 91–98
[2024-12-22 05:14] LABS: BASO # 0.0 10^3/uL (0.0-0.2); BASO % 0.1 % (0.0-1.0); EOS # 0.0 10^3/uL (0.0-0.5); EOS % 0.1 % (0.0-3.0); LYMPH # 1.5 10^3/uL (1.5-5.0); LYMPH % 10.6 % (24.0-44.0); MONO # 0.7 10^3/uL (0.0-0.8); MONO % 5.1 % (2.0-8.0); NEUTROPHILS # 11.8 10^3/uL (1.5-8.5); NEUTROPHILS % 83.6 % (36.0-66.0); PLATELET COUNT, AUTOMATED 298 10^3/uL (150-450)
[2024-12-22 05:33] LABS: CPK CREATINE PHOSPHOKINASE 263 U/L (34-145)
[2024-12-22 05:38] LABS: ALT/SGPT 16 U/L (7.0-40); AST/SGOT 41 U/L (<34); CALCIUM LEVEL 7.8 MG/DL (8.3-10.6); CARBON DIOXIDE LEVEL 27 MMOL/L (20-31); CHLORIDE LEVEL 110 MMOL/L (98-107); CK-MB VALUE MASS 3.6 NG/ML (<3.6); CREATININE FOR GFR 0.37 MG/DL (0.55-1.30); GLOMERULAR FILTRATION RATE > 90.0 (>45); MB/CK RELATIVE INDEX 1.36 (< OR =4); POTASSIUM SERUM 4.1 MMOL/L (3.5-5.1); SODIUM LEVEL 144 MMOL/L (136-145)
[2024-12-22 05:57] LABS: ABG BASE EXCESS 2.9 (-2.0-2.0); ABG HCO3 26.3 MMOL/L (22.0-26.0); ABG O2 SATURATION 99.2 % (95.0-99.0); ABG PARTIAL PRESSURE CO2 36.4 mmHg (35.0-45.0); ABG PARTIAL PRESSURE O2 183.6 mmHg (75.0-100.0); ABG STANDARD HCO3 27.1 MMOL/L. (22.0-26.0); ABG TOTAL CO2 27.4 MMOL/L (23.0-31.0); ABG pH (ARTERIAL) 7.477 UNITS (7.350-7.450)
[2024-12-22] MEDS: dexmedeTOMidine 200 MCG in IV 1 EA IV SCH (09:15)
[2024-12-22 11:25] LABS: FREE T4 1.18 NG/DL (0.89-1.76)
[2024-12-22] MEDS: FLUoxetine 20 MG CAP PO SCH (12:24)
[2024-12-22] MEDS: OXcarbazepine 300MG 5ML SUSP ORAL SYRINGE *DRAW UP EXACT DOSE PO SCH (12:24)
[2024-12-22] MEDS: FUROSEMIDE 100 MG/10 ML VIAL IV ONE (15:34)
[2024-12-23] VITALS (41 sets, daily range): BP systolic 110–161; BP diastolic 57–84; TEMP 98–98.3; O2SAT 86–98
[2024-12-23 00:59] LABS: CALCIUM LEVEL 7.7 MG/DL (8.3-10.6); CARBON DIOXIDE LEVEL 31 MMOL/L (20-31); CHLORIDE LEVEL 106 MMOL/L (98-107); CREATININE FOR GFR 0.45 MG/DL (0.55-1.30); GLOMERULAR FILTRATION RATE > 90.0 (>45); POTASSIUM SERUM 4.0 MMOL/L (3.5-5.1); SODIUM LEVEL 145 MMOL/L (136-145)
[2024-12-23 04:30] LABS: BASO # 0.0 10^3/uL (0.0-0.2); BASO % 0.1 % (0.0-1.0); EOS # 0.0 10^3/uL (0.0-0.5); EOS % 0.0 % (0.0-3.0); LYMPH # 1.4 10^3/uL (1.5-5.0); LYMPH % 9.6 % (24.0-44.0); MONO # 0.6 10^3/uL (0.0-0.8); MONO % 4.2 % (2.0-8.0); NEUTROPHILS # 12.4 10^3/uL (1.5-8.5); NEUTROPHILS % 85.4 % (36.0-66.0); PLATELET COUNT, AUTOMATED 333 10^3/uL (150-450)
[2024-12-23 04:58] LABS: CALCIUM LEVEL 8.1 MG/DL (8.3-10.6); CARBON DIOXIDE LEVEL 29 MMOL/L (20-31); CHLORIDE LEVEL 105 MMOL/L (98-107); CREATININE FOR GFR 0.43 MG/DL (0.55-1.30); GLOMERULAR FILTRATION RATE > 90.0 (>45); PHOSPHORUS LEVEL 3.4 MG/DL (2.4-5.1); POTASSIUM SERUM 3.8 MMOL/L (3.5-5.1); SODIUM LEVEL 144 MMOL/L (136-145)
[2024-12-23 04:59] LABS: ALT/SGPT 26 U/L (7.0-40); AST/SGOT 56 U/L (<34); MAGNESIUM LEVEL 2.1 MG/DL (1.8-2.4)
[2024-12-23 05:55] LABS: ABG BASE EXCESS 1.7 (-2.0-2.0); ABG HCO3 25.4 MMOL/L (22.0-26.0); ABG O2 SATURATION 98.4 % (95.0-99.0); ABG PARTIAL PRESSURE CO2 36.7 mmHg (35.0-45.0); ABG PARTIAL PRESSURE O2 128.4 mmHg (75.0-100.0); ABG STANDARD HCO3 26.0 MMOL/L. (22.0-26.0); ABG TOTAL CO2 26.5 MMOL/L (23.0-31.0); ABG pH (ARTERIAL) 7.458 UNITS (7.350-7.450)
[2024-12-23] MEDS ORDERED: KCL 20MEQ IN 100ML SWI (KRUN) 20 MEQ in IV 1 EA IV ONE (09:00)
[2024-12-23] MEDS: KCL 10MEQ/100ML SWI (KRUN) 10 MEQ in IV 1 EA IV SCH (10:09)
[2024-12-24] VITALS (14 sets, daily range): BP systolic 124–151; BP diastolic 71–92; TEMP 97.2–98.7; O2SAT 88–97
[2024-12-25 03:14] VITALS: BP 142/87; TEMP 97.5; O2SAT 96
[2024-12-25 06:15] LABS: PLATELET COUNT, AUTOMATED 331 10^3/uL (150-450)
[2024-12-25 06:56] LABS: ALT/SGPT 26 U/L (7.0-40); AST/SGOT 47 U/L (<34); CALCIUM LEVEL 8.0 MG/DL (8.3-10.6); CARBON DIOXIDE LEVEL 32 MMOL/L (20-31); CHLORIDE LEVEL 100 MMOL/L (98-107); CREATININE FOR GFR 0.35 MG/DL (0.55-1.30); GLOMERULAR FILTRATION RATE > 90.0 (>45); POTASSIUM SERUM 2.8 MMOL/L (3.5-5.1); SODIUM LEVEL 142 MMOL/L (136-145)
[2024-12-25 07:24] VITALS: BP 152/93; TEMP 98.2; O2SAT 96
[2024-12-25] MEDS: POTASSIUM CHLORIDE 10% LIQ 20MEQ/15ML UDC PO ONE ×2 (08:06→11:14)
[2024-12-25] MEDS: predniSONE 20 MG TAB PO SCH (08:08)
[2024-12-25] MEDS ORDERED: POTASSIUM CHLORIDE 10MEQ SR TABLET PO ONE ×2 (09:00→11:00)
[2024-12-25 11:19] VITALS: BP 136/90; TEMP 97.6; O2SAT 93
[2024-12-25 13:04] LABS: CALCIUM LEVEL 8.2 MG/DL (8.3-10.6); CARBON DIOXIDE LEVEL 31 MMOL/L (20-31); CHLORIDE LEVEL 99 MMOL/L (98-107); CREATININE FOR GFR 0.33 MG/DL (0.55-1.30); GLOMERULAR FILTRATION RATE > 90.0 (>45); POTASSIUM SERUM 3.6 MMOL/L (3.5-5.1); SODIUM LEVEL 141 MMOL/L (136-145)
[2024-12-25 15:25] VITALS: BP 138/90; TEMP 97.8; O2SAT 93
[2024-12-25 19:24] VITALS: BP 151/92; TEMP 97.5; O2SAT 94
[2024-12-25] MEDS: LORazepam 0.5 MG TAB PO SCH (21:26)
[2024-12-25] MEDS: MAGNESIUM OXIDE 400 MG TAB PO SCH (21:26)
[2024-12-25 23:09] VITALS: BP 102/55; TEMP 97.3; O2SAT 92
[2024-12-26] VITALS (8 sets, daily range): BP systolic 138–161; BP diastolic 81–97; TEMP 97.3–98.2; O2SAT 90–100
[2024-12-26 04:40] LABS: PLATELET COUNT, AUTOMATED 345 10^3/uL (150-450)
[2024-12-26 05:05] LABS: ALT/SGPT 26 U/L (7.0-40); AST/SGOT 49 U/L (<34); CALCIUM LEVEL 8.1 MG/DL (8.3-10.6); CARBON DIOXIDE LEVEL 32 MMOL/L (20-31); CHLORIDE LEVEL 99 MMOL/L (98-107); CREATININE FOR GFR 0.40 MG/DL (0.55-1.30); GLOMERULAR FILTRATION RATE > 90.0 (>45); POTASSIUM SERUM 2.9 MMOL/L (3.5-5.1); SODIUM LEVEL 142 MMOL/L (136-145)
[2024-12-26 10:05] LABS: KETONE, URINE AUTO RFX NEGATIVE (NEGATIVE); LEUKOCYTE ESTERASE UR AUTO RFX NEGATIVE (NEGATIVE); MUCUS, URINE RFX SMALL (NEGATIVE); NITRITE, URINE AUTO RFX NEGATIVE (NEGATIVE); RBC, URINE AUTO RFX 1 /HPF (0-3); SQUAM EPITHELIAL CELL UR AURFX 1 /HPF (0-6); WBC, URINE AUTO RFX 4 /HPF (0-3)
[2024-12-26] MEDS: ALBUTEROL SULFATE 2.5 MG/0.5 ML INH CONCENTRATE NEB SOLN NEB PRN (10:22)
[2024-12-26] MEDS: POTASSIUM CHLORIDE 10% LIQ 20MEQ/15ML UDC PO SCH (11:00)
[2024-12-26] MEDS: POTASSIUM CHLORIDE 10% LIQ 20MEQ/15ML UDC PO ONE (11:00)
[2024-12-26] MEDS: POTASSIUM CHLORIDE 10MEQ SR TABLET PO ONE (11:02)
[2024-12-26] MEDS ORDERED: HALOPERIDOL 0.5 MG TAB PO PRN (16:05)
[2024-12-27] VITALS (9 sets, daily range): BP systolic 138–157; BP diastolic 77–98; TEMP 97.1–98.2; O2SAT 91–95
[2024-12-27 04:36] LABS: PLATELET COUNT, AUTOMATED 304 10^3/uL (150-450)
[2024-12-27 05:02] LABS: ALT/SGPT 22 U/L (7.0-40); AST/SGOT 36 U/L (<34); CALCIUM LEVEL 8.2 MG/DL (8.3-10.6); CARBON DIOXIDE LEVEL 34 MMOL/L (20-31); CHLORIDE LEVEL 100 MMOL/L (98-107); CREATININE FOR GFR 0.38 MG/DL (0.55-1.30); GLOMERULAR FILTRATION RATE > 90.0 (>45); MAGNESIUM LEVEL 1.6 MG/DL (1.8-2.4); POTASSIUM SERUM 3.6 MMOL/L (3.5-5.1); SODIUM LEVEL 142 MMOL/L (136-145)
[2024-12-27] MEDS ORDERED: ELIQ5TAB PO (12:00)
[2024-12-27] MEDS: MAG SULF 1GM/100ML (MAG RUN) 1 GM in IV 1 EA IV SCH (13:07)
[2024-12-27] MEDS: traZODone 100 MG TAB PO SCH (20:55)
[2024-12-27] MEDS: APIXABAN 5 MG TAB PO SCH (20:55)
[2024-12-28 03:43] VITALS: BP 164/92; TEMP 97; O2SAT 92
[2024-12-28 07:05] LABS: BASO # 0.0 10^3/uL (0.0-0.2); BASO % 0.2 % (0.0-1.0); EOS # 0.2 10^3/uL (0.0-0.5); EOS % 1.3 % (0.0-3.0); LYMPH # 2.4 10^3/uL (1.5-5.0); LYMPH % 18.9 % (24.0-44.0); MONO # 0.6 10^3/uL (0.0-0.8); MONO % 4.8 % (2.0-8.0); NEUTROPHILS # 9.4 10^3/uL (1.5-8.5); NEUTROPHILS % 73.2 % (36.0-66.0); PLATELET COUNT, AUTOMATED 328 10^3/uL (150-450)
[2024-12-28 07:25] LABS: CALCIUM LEVEL 8.1 MG/DL (8.3-10.6); CARBON DIOXIDE LEVEL 30 MMOL/L (20-31); CHLORIDE LEVEL 97 MMOL/L (98-107); CREATININE FOR GFR 0.37 MG/DL (0.55-1.30); GLOMERULAR FILTRATION RATE > 90.0 (>45); MAGNESIUM LEVEL 1.9 MG/DL (1.8-2.4); POTASSIUM SERUM 3.4 MMOL/L (3.5-5.1); SODIUM LEVEL 140 MMOL/L (136-145)
[2024-12-28 07:46] VITALS: BP 165/97; TEMP 97.6; O2SAT 92
[2024-12-28 09:28] VITALS: BP 125/84
[2024-12-28] MEDS: predniSONE 20 MG TAB PO SCH (09:35)
[2024-12-28] MEDS: amLODIPine 5 MG TAB PO SCH (09:48)
[2024-12-28] MEDS: PERCOCET 5MG/325MG TAB PO PRN (13:06)
[2024-12-28] MEDS: POTASSIUM CHLORIDE 10% LIQ 20MEQ/15ML UDC PO SCH (17:17)
[2024-12-28 19:54] VITALS: BP 135/85; TEMP 97.2; O2SAT 98
[2024-12-28 23:30] VITALS: BP 127/72; TEMP 98.1; O2SAT 91
[2024-12-29 03:36] VITALS: BP 124/68; TEMP 98; O2SAT 91
[2024-12-29 05:46] LABS: BASO # 0.0 10^3/uL (0.0-0.2); BASO % 0.2 % (0.0-1.0); EOS # 0.2 10^3/uL (0.0-0.5); EOS % 1.5 % (0.0-3.0); LYMPH # 3.0 10^3/uL (1.5-5.0); LYMPH % 21.3 % (24.0-44.0); MONO # 0.7 10^3/uL (0.0-0.8); MONO % 4.6 % (2.0-8.0); NEUTROPHILS # 9.8 10^3/uL (1.5-8.5); NEUTROPHILS % 70.0 % (36.0-66.0); PLATELET COUNT, AUTOMATED 333 10^3/uL (150-450)
[2024-12-29 06:19] LABS: CALCIUM LEVEL 8.3 MG/DL (8.3-10.6); CARBON DIOXIDE LEVEL 28 MMOL/L (20-31); CHLORIDE LEVEL 99 MMOL/L (98-107); CREATININE FOR GFR 0.39 MG/DL (0.55-1.30); GLOMERULAR FILTRATION RATE > 90.0 (>45); MAGNESIUM LEVEL 1.9 MG/DL (1.8-2.4); POTASSIUM SERUM 3.6 MMOL/L (3.5-5.1); SODIUM LEVEL 140 MMOL/L (136-145)
[2024-12-29 08:00] VITALS: BP 151/89; TEMP 97; O2SAT 96
[2024-12-29] MEDS: LIDOCAINE 5% PATCH TD SCH (09:09)
[2024-12-29] MEDS ORDERED: RAMELTEON 8 MG TAB PO PRN (11:15)
[2024-12-29 12:00] VITALS: BP 125/81; TEMP 97.6; O2SAT 97
[2024-12-29 16:18] VITALS: BP 136/82; TEMP 97.8; O2SAT 94
[2024-12-29 20:00] VITALS: BP 140/92; TEMP 97.7; O2SAT 94
[2024-12-29] MEDS: MAGNESIUM OXIDE 400 MG TAB PO SCH (20:35)
[2024-12-29 23:22] VITALS: BP 142/83; TEMP 98; O2SAT 96
[2024-12-30 03:25] VITALS: BP 117/71; TEMP 97.7; O2SAT 93
[2024-12-30 07:53] VITALS: BP 123/83; TEMP 97.5; O2SAT 95
[2024-12-30] MEDS: predniSONE 20 MG TAB PO SCH (08:23)
[2024-12-30] MEDS: POTASSIUM CHLORIDE 10% LIQ 20MEQ/15ML UDC PO SCH (08:24)
[2024-12-30 12:00] VITALS: BP 117/72; TEMP 97.2; O2SAT 95
[2024-12-30 16:00] VITALS: BP 152/81; TEMP 97.5; O2SAT 96
[2024-12-31 08:28] VITALS: BP 140/69; TEMP 97.6; O2SAT 95
[2025-01-01 08:20] VITALS: BP 101/62; TEMP 96.8; O2SAT 97
[2025-01-01] MEDS: predniSONE 10 MG TAB PO SCH (08:57)
[2025-01-01] MEDS: CYCLOBENZAPRINE 5 MG TABLET PO PRN (09:17)
[2025-01-01] MEDS: PANTOPRAZOLE 40MG TAB PO SCH (10:26)
[2025-01-01] MEDS: clonazePAM 0.5 MG TAB PO PRN (10:30)
[2025-01-01 19:23] VITALS: BP 105/64; TEMP 97.4; O2SAT 93
[2025-01-02 08:32] VITALS: BP 107/68
[2025-01-02 08:37] VITALS: BP 107/65; O2SAT 96
[2025-01-02] MEDS ORDERED: LIDO1PAD TOP (09:48)
[2025-01-02] MEDS ORDERED: LEVO100T5 PO (09:48)
[2025-01-02] MEDS ORDERED: AMLO1TAB24 PO (09:48)
[2025-01-02] MEDS: PATIROMER SORBITEX CALCIUM 8.4GM POWDER PACKET PO ONE (10:25)
[2025-01-03] MEDS ORDERED: APIXABAN 5 MG TAB PO SCH (21:00)
== END 2025-01-02 13:35 | disposition home health service (06) | DRG 871 ==
LOC: M ED 08:23 → M ED INP 16:13 → M ICU 21:17 → M PCU 12-24 16:05
PROVIDERS: ADMIT Student in an Organized Health Care Education/Training Program; ATTEND Student in an Organized Health Care Education/Training Program
PROC: 5A1945Z Respiratory Ventilation, 24-96 Consecutive Hours (ICD-10-PCS; 2024-12-20)
PROC: 0BH17EZ Insertion of Endotracheal Airway into Trachea, Via Natural or Artificial Opening (ICD-10-PCS; 2024-12-20)
PROC: B246ZZZ Ultrasonography of Right and Left Heart (ICD-10-PCS; principal; 2024-12-21)
DX: A41.9 Sepsis, unspecified organism (principal); I26.99 Other pulmonary embolism without acute cor pulmonale; J18.9 Pneumonia, unspecified organism; J96.01 Acute respiratory failure with hypoxia; I46.8 Cardiac arrest due to other underlying condition; E87.20 Acidosis, unspecified; I82.B12 Acute embolism and thrombosis of left subclavian vein; G43.909 Migraine, unspecified, not intractable, without status migrainosus; K21.9 Gastro-esophageal reflux disease without esophagitis; E87.6 Hypokalemia; M54.50 Low back pain, unspecified; G89.29 Other chronic pain; E78.5 Hyperlipidemia, unspecified; R19.7 Diarrhea, unspecified; E03.9 Hypothyroidism, unspecified; E83.42 Hypomagnesemia; F20.9 Schizophrenia, unspecified; F12.90 Cannabis use, unspecified, uncomplicated; F41.9 Anxiety disorder, unspecified; F17.210 Nicotine dependence, cigarettes, uncomplicated; Z90.49 Acquired absence of other specified parts of digestive tract; Z71.51 Drug abuse counseling and surveillance of drug abuser; Z79.890 Hormone replacement therapy; Z79.899 Other long term (current) drug therapy; Z88.0 Allergy status to penicillin; Z91.030 Bee allergy status

== ENCOUNTER → 2025-01-30 | Outpatient (REF) | payer MEDICARE, MEDICAID ==
[~2025-01-30] MED LIST changes: +AMLO1TAB24 PO; +CLON0.5T2 PO; +ELIQ5TAB PO; +HALO0.5H PO; +INVE1.75 IM; +LEVO100T5 PO; +LIDO1PAD TOP; +PROZ10CA11 PO; -PROZ10CA7 PO; -PROZ20CA11 PO; +PROZ20CA12 PO; +TRAZ-189 PO
[2025-01-30 13:12] LABS: BASO # 0.1 10^3/uL (0.0-0.2); BASO % 0.5 % (0.0-1.0); EOS # 0.2 10^3/uL (0.0-0.5); EOS % 2.5 % (0.0-3.0); LYMPH # 3.4 10^3/uL (1.5-5.0); LYMPH % 35.7 % (24.0-44.0); MONO # 0.8 10^3/uL (0.0-0.8); MONO % 8.5 % (2.0-8.0); NEUTROPHILS # 5.0 10^3/uL (1.5-8.5); NEUTROPHILS % 52.4 % (36.0-66.0); PLATELET COUNT, AUTOMATED 330 10^3/uL (150-450)
[2025-01-30 13:18] LABS: CALCIUM LEVEL 8.8 MG/DL (8.3-10.6); CARBON DIOXIDE LEVEL 33 MMOL/L (20-31); CHLORIDE LEVEL 98 MMOL/L (98-107); CREATININE FOR GFR 0.49 MG/DL (0.55-1.30); GLOMERULAR FILTRATION RATE > 90.0 (>45); POTASSIUM SERUM 3.5 MMOL/L (3.5-5.1); SODIUM LEVEL 138 MMOL/L (136-145)
== END ==
LOC: M LAB REF 12:20
PROVIDERS: ATTEND Family Medicine Addiction Medicine
DX: E87.6 Hypokalemia (principal); D72.829 Elevated white blood cell count, unspecified

== ENCOUNTER → 2025-03-02 | Outpatient (REF) | payer MEDICARE, MEDICAID ==
[2025-03-02 16:25] LABS: FREE T4 1.12 NG/DL (0.89-1.76)
== END ==
LOC: M LAB REF 14:37
PROVIDERS: ATTEND Family Medicine Addiction Medicine
DX: E03.9 Hypothyroidism, unspecified (principal)